=== PATIENT | male | born 1935 | race Caucasian/White ===

== ENCOUNTER 2020-05-11 15:36 | Emergency (ER) | payer MEDICARE, SELFPAY ==
[2020-05-11 15:37] VITALS: BP 120/67; PULSE 80; RESP 16; TEMP 36.1; O2SAT 98; BMI 34.3
--- NOTE | 2020-05-11 15:58 | ED.VIS.GEN ---
History of Present Illness Chief Complaint: Fall Informant: Patient, Significant Other Narrative: 84-year-old male presenting for evaluation after mechanical fall which occurred at about 230 this morning. His states he normally ambulates with a walker at baseline. She states he has had some falls in the past. Patient states he tripped while using his walker on the way to the bathroom. He fell into the shower and struck his left shoulder and the back of his head. He denies LOC. He is not on blood thinners however he does take aspirin. felt that he was more confused than usual this morning but seems to be at his baseline. He is ambulating with his walker and bearing weight with his left shoulder. He states he is making normal urine and stool. He has a normal diet. Prior similar symptoms: Yes Recent Illness/Hospitalization: Yes - Past Medical History (1) Benign essential hypertension Status: Chronic (2) Hyperlipidemia Status: Chronic (3) Type 2 diabetes mellitus Status: Chronic Past Medical History - Allergies and Home Meds Allergies/Adverse Reactions: Allergies adhesive Allergy (Verified 05/11/20 15:36) Rash Latex, Natural Rubber Allergy (Verified 05/11/20 15:36) Rash Primary Care Physician: Daren Avendano III, MD [Primary Care Provider] - Prior records reviewed: Yes Past Medical History: - - Reviewed in problem list Surgical History: noncontributory, - - She has previously undergone a left total hip replacement procedure in 2013. Lives: Spouse/ Significant Other Smoking Status: Never smoker Alcohol: None Drugs: None - Family History Maternal Family History: Reports: - - The patient's father at age of 67 with a history of cerebrovascular accident. Patient's mother at the age of 76 with a history of myocardial infarction. Review of Systems General: Denies: Chills, Fever, Sweats Eyes: Denies: Visual changes - bilaterally, Diplopia ENT: Denies: Rhinorrhea, Sore throat Cardiovascular: Denies: Chest pain, Palpitations Respiratory: Denies: Dyspnea, Cough, Dyspnea on exertion Gastrointestinal: Denies: Abdominal pain, Nausea, Vomiting, Diarrhea, Melena, Hematochezia Genitourinary: Denies: Dysuria, Hematuria, Frequency Musculoskeletal: Reports: Extremity Pain - Left shoulder pain. Denies: Back pain Skin: Denies: Rash, Abscess Neurological: Denies: Headache, Parasthesia, Numbness Psych: Denies: Depression, Anxiety Physical Exam Vital Signs/Narrative: Vital Signs Temp Pulse Resp BP Pulse Ox 05/11/20 15:37 97.0 F L 80 16 120/67 98 General: Well nourished, No Acute Distress Head: Normocephalic, Atraumatic Eyes: Perrl, EOMI ENT: Moist mucous membranes. Negative for: Nasal congestion Cardiovascular: Regular rate, Regular rhythm Respiratory: No distress, CTA bilaterally Back: Nontender, Normal Inspection Extremities: Tenderness - Tenderness to palpation over left shoulder. Minimal range of motion secondary to pain. Clavicle has deformity. Negative for: Edema, Calf Tenderness Skin: Normal color, No rash Neurological: Alert, Oriented x3, Cranial nerves II-XII grossly intact Psychological: Normal affect, Normal Mood Diagnostic/Tx/Re-eval Clinical Impression(s) from Imaging Studies Brain CT 05/11/20 16:03 IMPRESSION: No acute intracranial abnormality. Chronic ischemic and atrophic changes. Electronically Signed: Shaheen Payton MD at 16:49 EST Tel , Service support , Shoulder X-Ray 05/11/20 16:15 IMPRESSION: No fracture or dislocation. Moderate degenerative change. Electronically Signed: Shaheen Payton MD at 16:44 EST Tel , Service support , - Medical Decision Making Patient presents after mechanical fall for evaluation. His states he was initially more confused but is now coherent and normal at his baseline. He is been ambulatory with his walker although she states he is been walking slower. He has pain to the left shoulder. He denies headache, dizziness. Patient offered lab work as well as imaging however they did not want to do lab work today. They feel that he purely had a mechanical fall due to his walking difficulty. CT of the brain shows no acute process. Left shoulder x-ray 2 view as interpreted by myself and the radiologist shows no acute process. He and his are comfortable with going home at this time. Given return precautions. Patient stable for discharge. Impression: 1. Mechanical fall 2. Closed head injury 3. Left shoulder contusion ED Disposition - Plan for ED Patient: Disposition: Home or Assisted Living Instructions: ED Mechanical Fall, ED Head Injury (Adult), ED Shoulder Sprain Referrals: Daren Avendano III, MD [Primary Care Provider] -
--- NOTE | 2020-05-11 16:03 | CT_ITS ---
STUDY: CT BRAIN WITHOUT CONTRAST REASON FOR EXAM: Male, 84 years old. Fall. Dementia. RADIATION DOSAGE (If Supplied By Facility): CTDIvol = ( 44.99 ) mGy, DLP = ( 815.79 ) mGycm TECHNIQUE: Transaxial CT imaging of the brain was performed without administration of intravenous contrast material. Individualized dose optimization techniques were used for this CT. COMPARISON: None. FINDINGS: There is no acute bleed or infarct. There are chronic ischemic and atrophic changes. The ventricles are normal in configuration. There is no hydrocephalus. The visualized paranasal sinuses are clear. The mastoid air cells are well aerated. There is no skull fracture. CT/Brain/Head without Contrast IMPRESSION: No acute intracranial abnormality. Chronic ischemic and atrophic changes. Electronically Signed: Shaheen Payton MD at 16:49 EST Tel , Service support ,
--- NOTE | 2020-05-11 16:15 | RAD_ITS ---
STUDY: X-RAY - LEFT SHOULDER REASON FOR EXAM: Male, 84 years old. Fall. Pain. TECHNIQUE: 2 view(s) of the shoulder. COMPARISON: None. FINDINGS: There is no evidence of fracture or dislocation. There are moderate degenerative changes. There are no radiodense foreign bodies. RAD/Shoulder min 2 Views IMPRESSION: No fracture or dislocation. Moderate degenerative change. Electronically Signed: Shaheen Payton MD at 16:44 EST Tel , Service support ,
[2020-05-11 17:18] VITALS: PULSE 82; RESP 16
== END 2020-05-11 17:19 | disposition home or self-care (01) ==
PROVIDERS: Emergency Provider Student in an Organized Health Care Education/Training Program; PCP Family Medicine
DX: S09.90XA Unspecified injury of head, initial encounter (principal); S40.012A Contusion of left shoulder, initial encounter; W01.198A Fall on same level from slipping, tripping and stumbling with subsequent striking against other object, initial encounter; Y93.9 Activity, unspecified; Y92.002 Bathroom of unspecified non-institutional (private) residence as the place of occurrence of the external cause; Y99.9 Unspecified external cause status; E11.9 Type 2 diabetes mellitus without complications; E78.5 Hyperlipidemia, unspecified; F03.90 Unspecified dementia, unspecified severity, without behavioral disturbance, psychotic disturbance, mood disturbance, and anxiety; I10 Essential (primary) hypertension; I67.82 Cerebral ischemia; Z79.82 Long term (current) use of aspirin; Z82.49 Family history of ischemic heart disease and other diseases of the circulatory system; Z91.040 Latex allergy status
CPT/HCPCS: 70450; 73030; 99282

== ENCOUNTER 2021-05-02 08:25 | Inpatient (IN) | payer MEDICARE, SELFPAY ==
[2021-05-02] VITALS (11 sets, daily range): BP systolic 102–141; BP diastolic 54–94; PULSE 86–130; RESP 16–32; TEMP 35.7–36.9; O2SAT 80–98; BMI 28.3; BMI 27.7
--- NOTE | 2021-05-02 08:42 | EKG12_ITS ---
Test Reason : WEAKNESS Blood Pressure : / mmHG Vent. Rate : 089 BPM Atrial Rate : 089 BPM P-R Int : 170 ms QRS Dur : 098 ms QT Int : 378 ms P-R-T Axes : -01 061 005 degrees QTc Int : 459 ms Normal sinus rhythm Nonspecific ST abnormality Abnormal ECG Confirmed by LOYDA MARSH, RICHARD ([id number]), newspaper copy editor ROSALINA LLAMAS ([id number]) on 05/07/2021 11:11:48 AM Referred By: ELLY Confirmed By:RICHARD SCALES MD
--- NOTE | 2021-05-02 08:44 | EX.ED.DYSGE1 ---
HPI History of Present Illness Chief Complaint: Weakness Informant: patient and family Narrative Narrative: History is from patient and also from his daughter. Patient states he started with diarrhea about 2-3 days ago. However, his daughter states diarrhea is very common for him. It did change because it was a darker black with a little bit of red mixed in. It sounds like he might have had a GI bleed in the past. He is not on any nonsteroidals that I can ascertain. He is not on aspirin or any anticoagulants. He has some mild nausea but no vomiting. He has had hot and cold chills but no documented fever. No coughing or trouble breathing. No chest pain. He actually has no abdominal pain at any time. No urinary symptoms. His evidently was diagnosed with Covid on 22 April. He has not been tested. The reason they came in today is he is too weak to even get up out of bed now. He normally uses a walker. But for 24 hours he cannot get out of bed. The family needed to call EMS to get him in here. [facility] Medical History (Updated 05/02/21 @ 13:50 by Quinn Casey) Anxiety Dementia Depression Diabetes GERD (gastroesophageal reflux disease) Hypertension Rheumatoid arthritis Home Medications amlodipine 10 mg PO DAILY 05/30/14 [History Last Taken 05/02/21] calcium carbonate-vitamin D3 [Caltrate-600 With Vit D Tab] 1 tab PO DAILY@0800 05/30/14 [History Last Taken 05/02/21] fluoxetine 20 mg PO DAILY 05/30/14 [History Last Taken 05/02/21] indapamide 2.5 mg PO DAILY 05/30/14 [History Last Taken 05/02/21] lisinopril 40 mg PO DAILY 05/30/14 [History Last Taken 05/02/21] metoprolol tartrate 25 mg PO DAILY 05/30/14 [History Last Taken 05/02/21] donepezil 10 mg PO QHS 05/11/20 [History Last Taken 05/02/21] ferrous sulfate 325 mg PO BID 05/11/20 [History Last Taken 05/02/21] acetaminophen [Tylenol Arthritis] 650 mg PO Q12H PRN 05/02/21 [History Last Taken 05/02/21] melatonin 2.5 mg PO QHS 05/02/21 [History Last Taken Unknown] Allergy/AdvReac Type Severity Reaction Status Date / Time adhesive Allergy Rash Verified 05/11/20 15:36 Latex, Natural Rubber Allergy Rash Verified 05/11/20 15:36 Social History Smoking Status: Never smoker ROS ROS ED Constitutional Constitutional ED: Reports chills and subjective ENT ENT ED: Denies rhinorrhea or sore throat Cardiovascular Cardiovascular: Denies chest pain or palpitations Respiratory/Chest Respiratory/Chest: Denies cough or dyspnea Gastrointestinal Gastrointestinal: Reports diarrhea, melena and nausea; Denies abdominal pain or vomiting Genitourinary Genitourinary ED: Denies dysuria Musculoskeletal Musculoskeletal: Denies myalgias Integumentary Denies rash Neurologic Neurologic: Denies headache(s) Endocrine Endocrinology: Denies polydipsia or polyuria Allergic/Immunologic Allergic/Immunologic ED: Reports other Details: He does condition which is unnamed. He does have excoriations. This is not new or different. ; Denies mouth swelling or urticaria EXAM Physical Exam Narrative Exam Narrative: Patient does look a little bit pale. He looks overall a little weak. He is hard of hearing. Const Vital Signs: 05/02/21 08:26 05/02/21 08:30 05/02/21 08:45 Temperature 98.2 F 98.2 F Temperature Source Temporal Temporal Pulse Rate 96 96 Respiratory Rate 26 H 26 H Respiratory Effort Normal Non-Labored Respiratory Pattern Normal Blood Pressure 102/59 L 102/59 L Blood Pressure Mean 73 73 Pulse Ox 93 93 Oxygen Delivery Method Room Air Room Air 05/02/21 09:42 05/02/21 10:02 05/02/21 10:31 Temperature 98.1 F 98.2 F Temperature Source Oral Oral Pulse Rate 93 86 95 Respiratory Rate 22 H 19 H 25 H Respiratory Effort Respiratory Pattern Blood Pressure 114/54 L 109/57 L 109/57 L Blood Pressure Mean 74 74 74 Pulse Ox 93 93 Oxygen Delivery Method Room Air Room Air 05/02/21 11:23 Temperature 96.3 F L Temperature Source Temporal Pulse Rate 102 H Respiratory Rate 25 H Respiratory Effort Respiratory Pattern Blood Pressure 123/60 H Blood Pressure Mean 81 Pulse Ox Oxygen Delivery Method Positive well nourished and well developed General Appearance ED: well developed HEENT Reports dry mucous membranes Negative for trauma Mouth ED: Yes dry mucous membranes Mouth: dry mucous membranes Eyes Eyes Narrative: Very mild pallor. General Eye ED: Yes pale conjunctiva; Negative for scleral icterus Neck no JVD Chest Wall inspection of chest normal Resp normal respiratory effort Resp Narrative: Patient has some coarse breath sounds. However, he makes a lot of upper airway sounds when he breathes and these may be transmitted sounds. Effort and Inspection: Negative for pain with movement Auscultation: Negative for rales or wheezes Cardio regular rate and regular rhythm GI normal to inspection, nondistended, normoactive bowel sounds and non-tender GI Narrative: Rectal exam done showed really no notable stool. It is mildly dark. No gross bleeding. Palpation: soft Back/Spine no CVA tenderness Extremity normal to inspection Extremity Narrative: Extremities are somewhat large. But they are chronic. No real pitting edema of significance. Neuro Neuro Narrative: Patient is alert appropriate and at baseline. He is hard of hearing. His memory is not perfect and his daughter does fill in and change some of his historical points. Sensorium / Orientation: alert Psych mental status grossly normal Skin Skin Narrative: Excoriations mostly on his back and shoulder areas. No sign of infections. MDM MDM MDM Narrative Medical decision making narrative: Patient has a high white count that does not typically go along with Covid. He is covered with Zosyn that should provide some reasonable coverage for both intra-abdominal and pulmonary infections. He does have some mild anemia at 9.0. Electrolytes show some acute kidney injury. Lactate is normal. CT scan did show signs of diverticulitis. Patient will be admitted. He has generalized weakness, GI bleed, Covid. Lab Data Attestation: I reviewed the patient's lab results. Labs: Laboratory Results - last 24 hr 05/02/21 05/02/21 05/02/21 08:30 08:30 09:41 WBC 19.3 H RBC 3.07 L Hgb 9.0 L Hct 28.1 L MCV 91.5 MCH 29.3 MCHC 32.0 RDW Std Deviation 45.5 H RDW Coeff of Micah 13.6 Plt Count 305 MPV 8.7 Immature Gran % (Auto) 3.400 H Neut % (Auto) 83.2 H Lymph % (Auto) 6.9 L Mora % (Auto) 6.0 Eos % (Auto) 0.2 Baso % (Auto) 0.3 Absolute Neuts (auto) 16.1 H Absolute Lymphs (auto) 1.33 Nucleated RBC % 0 Sodium 140 Potassium 5.0 Chloride 112 H Carbon Dioxide 19.0 L Anion Gap 9 BUN 67 H Creatinine 2.86 H Estim Creat Clear Calc 19.57 Est GFR (MDRD) Af Amer 27 L Est GFR (MDRD) Non-Af 23 L BUN/Creatinine Ratio 23.4 H Glucose 178 H Lactic Acid 1.9 Calcium 8.4 L Total Bilirubin 0.20 AST 17 ALT 19 Alkaline Phosphatase 116 Troponin I High Sens 18 Total Protein 6.5 Albumin 2.4 L Globulin 4.1 Albumin/Globulin Ratio 0.6 L Radiography Diagnostic Testing: Clinical Impression(s) from Imaging Studies Chest X-Ray 05/02/21 09:16 IMPRESSION: Mild increased markings in the peripheral aspect of the right upper lobe. Electronically Signed: Shad Garrido MD at 9:53 EST , Service support , Abdomen/Pelvis CT 05/02/21 10:18 IMPRESSION: 3.4 cm x 3.6 cm diverticulum of the second portion of the duodenum with an air-fluid level. Sigmoid diverticulosis with a mild degree of the sigmoid diverticulitis. Distention of the gallbladder. Electronically Signed: Shad Garrido MD at 10:55 EST , Service support , EKG Initial EKG: Comments: EKG done for generalized weakness and read by me shows a normal sinus rhythm with overall rate of 89. No ventricular ectopy. Mild nonspecific ST and T wave change but no sign of acute infarct or ischemia. MS interval, QRS duration and QTc normal. Discharge Plan Dx/Rx/DC Orders Clinical Impression: COVID, Diarrhea, Inability to ambulate due to multiple joints, Diverticulitis, Acute kidney injury Disposition Disposition: Acute Care [facility] Discharge Date/Time: 05/02/21 12:23
[2021-05-02] MEDS: Ondansetron 4 MG/2 ML Vial IV (08:50)
[2021-05-02 08:59] LABS: Absolute Lymphocyte Count 1.33 X10^3/uL (0.83-4.51); Absolute Neutrophil Count 16.1 X10^3/uL (2.0-7.7); Basophil# 0.06 X10^3/uL; Basophil% 0.3 % (0-1); Eosinophil# 0.03 X10^3/uL; Eosinophils% 0.2 % (0-5); Hematocrit 28.1 % (40-54); Lymphocyte # 1.33 X10^3/ul (0.83-4.51); Lymphocyte % 6.9 % (19-41); Mean Corpuscular Hgb 29.3 pg (27.0-32.0); Mean Corpuscular Volume 91.5 fL (80-94); Mean Platelet Vol. 8.7 fl (6.2-12.0); Monocyte# 1.15 X10^3/uL; NRBC Flagged by Analyzer 0 % (0-5); Neutrophil # 16.05 X10^3/uL (2.7-7.7); Neutrophil % 83.2 % (47-70); Platelet Count 305 K/mm3 (150-450); RBC Distribution Width CV 13.6 % (11.6-14.6); RBC Distribution Width SD 45.5 fl (35.1-43.9); Red Blood Count 3.07 M/mm3 (4.6-6.2); White Blood Count 19.3 K/mm3 (4.4-11.0)
--- NOTE | 2021-05-02 09:16 | RAD_ITS ---
STUDY: X-RAY CHEST REASON FOR EXAM: Male, 85 years old. Fever, evaluate for pneumonia, Covid exposure TECHNIQUE: Single AP portable view of the chest. COMPARISON: None. FINDINGS: EKG electrodes are seen. Minimal increased markings in the peripheral aspect of the right upper lobe. Early infiltrate should be ruled out. There is no demonstrated pleural abnormality. Normal size heart. Normal mediastinum and adithya. Normal visualized pulmonary arteries. Normal visualized aortic arch and descending thoracic aorta. There are diffuse degenerative changes of the visualized thoracic spine. Healed left rib fractures. Hiatal hernia. RAD/Chest 1 View (Portable) IMPRESSION: Mild increased markings in the peripheral aspect of the right upper lobe. Electronically Signed: Shad Garrido MD at 9:53 EST , Service support ,
[2021-05-02 09:19] LABS: ALB/GLOB Ratio 0.6 RATIO (0.9-2.4); AST(SGOT) 17 U/L (15-37); Alanine Aminotransfer ALT/SGPT 19 U/L (16-61); Albumin, Serum 2.4 g/dL (3.2-5.0); Alkaline Phosphatase 116 U/L (45-117); Anion Gap 9 (5-15); BUN 67 mg/dL (7-18); BUN/Creat Ratio 23.4 RATIO (10-20); Calcium,Total 8.4 mg/dL (8.5-10.1); Chloride 112 mmol/L (98-107); Creatinine, Serum 2.86 mg/dL (0.70-1.30); EST Glomerular Filtration Rate 23 mL/min (>60); Est Glom Filt Rate - Afr Amer 27 mL/min (>60); Estimated Creatinine Clearance 19.57 ml/min; Globulin 4.1 g/dL (2.2-4.2); Glucose 178 mg/dL (74-106); Protein, Total 6.5 g/dL (6.4-8.2); Sodium Level 140 mmol/L (136-145); Troponin-I HS 18 pg/mL (3.0-78.0)
[2021-05-02 10:15] LABS: Lactic Acid 1.9 mmol/L (0.4-1.9)
--- NOTE | 2021-05-02 10:18 | CT_ITS ---
STUDY: CT ABDOMEN AND PELVIS WITHOUT CONTRAST REASON FOR EXAM: Male, 85 years old. Abd pain, increased WBC, GI Bleed, hx divertic RADIATION DOSAGE (If Supplied By Facility): CTDIvol = ( 12.10 ) mGy, DLP = ( 607.67 ) mGycm TECHNIQUE: Transaxial images were obtained from the dome of the diaphragm to the symphysis pubis without oral contrast, and without intravenous contrast. Sagittal and coronal images were reconstructed. Individualized dose optimization techniques were used for this CT. COMPARISON: Comparison is made with prior study dated 01/23/2012. FINDINGS: Mild degree of atelectasis and/or scarring at the lung bases. Coronary artery calcification. Normal liver. Mildly distended gallbladder. I cannot rule out tiny layering gallstones. Normal spleen. Normal pancreas. Normal bilateral adrenal glands. 3 mm calculus in the lower pole calyx of the right kidney. Normal left kidney. Normal visualized stomach. There is a 3.4 cm x 3.6 cm diverticulum in the second portion of the duodenum with an air-fluid level. There is diverticulosis, with thickening of the colon wall, and pericolonic inflammation changes consistent with mild acute diverticulitis. The appendix is visualized and appears normal. There is diffuse atherosclerotic calcification of the abdominal aorta and its major visceral branches, without a demonstrated aneurysm. Normal inferior vena cava. Normal retroperitoneum. Distended urinary bladder. There is a 2.4 cm x 2.2 cm diverticulum along the posterior left lateral wall of the bladder. Normal abdominal wall. There are diffuse degenerative changes of the visualized lumbar spine. Loss of height of the L1 vertebrae. Loss of height of the T10 vertebrae. Straightening of the normal lumbar lordosis. Status post left hip replacement. CT/Abdomen/Pelvis without Cont IMPRESSION: 3.4 cm x 3.6 cm diverticulum of the second portion of the duodenum with an air-fluid level. Sigmoid diverticulosis with a mild degree of the sigmoid diverticulitis. Distention of the gallbladder. Electronically Signed: Shad Garrido MD at 10:55 EST , Service support ,
--- NOTE | 2021-05-02 13:10 | CASEMGMT ---
RN CM Assessment: Telephone call to pt for initial transition planning/care coordination assessment as primary nurse reports pt is confused and unable to complete assessment with RN CM. RN CM introduced self and role at [facility], pt voices understanding and consents to assessment. Pt reports pt has dementia, that he is normally oriented to person and place but not time. She states pt has his days and nights mixed up. She is his primary cg and she currently has covid. Asked if she has any help in the home such as HHC or have considered it, she states he will not stand for anyone to come in the home. She also states she thinks that she needs to do something different as he is alot to handle but he won't go anywhere. Care providers, pharmacy, and demographics verified/updated. Admitting Dx: FINESSE JHAVERI GIB PCP:Tae Solis NP Specialists: None Preferred Pharmacy: [facility] Insurance: [employer] [facility] Prescription Benefit: yes LW/HPOA: Pt reports she is pt DPOA and pt does have a LW. LNOK: Claudia Schmitz, ; Clarke Griffith, dtr Living Arrangements: Pt lives with in a two story house with no steps to enter. Pt does not use the upper level of the home. Pt bathes and dresses pt. He is dependent in ADL's and IADL's. Transportation: Pt transports pt to medical appts. If she is not available, pt dtr transports him to medical appts. DME/HHC/SNF: Pt has a walker and w/c at home. She states pt does not check his blood sugars. Denies any hx of HHC or SNF stays. Pt tested positive for COVID at [facility]. Pt states that family is able to assist with groceries and supplies while in quarantine and has been doing this already. Discussed local in network DME companies should pt need home O2, she denies preference. Pt aware that this RN CM will follow for any needs at home and how he does with therapy. She states no further concerns/needs. Advised pt to ask CM if any further question/concerns/needs arise, voices understanding. Pt Goal: Pt to return home because this is what he wishes. She feels he needs placement. Plan: TBD
[2021-05-02] MEDS: 0.9% Normal Saline 1,000 ML 75 ML IV (13:33)
[2021-05-02] MEDS: Acetaminophen 325 MG Tablet 650 MG PO ×2 (14:05→21:33)
--- NOTE | 2021-05-02 14:10 | NURSING ---
spoke with Claudia and got home med list and history.
[2021-05-02 16:26] LABS: Bedside Glucose 117 mg/dL (70-110)
--- NOTE | 2021-05-02 17:19 | HP.PCM.HOS_ITS ---
HPI - General General Date of Admission: 05/02/21 HPI Narrative CHARAN BARAHONA, is a 85 M who presents with diarrhea, weakness and confusion. He is unable to provide any history and no family members are at bedside therefore history is obtained through review of the medical record. According to the ED doc with the patient's daughter stated that he does commonly have diarrhea but this time around is little bit more dark black with some red mixed into it, likely from hemorrhoids. He does not appear to be on any aspirin or ibuprofen to have a reason they identified radiculogram. They will bring [place] your views of the left lower borderline get the nodules about a volume out of there is no rigidity assessment is very good [place] [facility] C-19 have a reason for the bleed. He has not been eating or drinking very well over the last several days. Apparently his was also diagnosed with COVID on April 22 but he had not been tested until today. The main reason why he was brought in by family was that he was so weak that he could not get out of bed today. In the ER he was found to have a white blood cell count of 19.3 and also tested positive for COVID. Chest x-ray was unremarkable however given the diarrhea the ED physician did obtain a CT scan of his abdomen and pe lvis which demonstrated a duodenal diverticulum with a mild degree of sigmoid diverticulitis. [facility] Medical History (Updated 05/02/21 @ 17:[address] Nehemiah Luis MD) Anxiety Dementia Depression Diabetes GERD (gastroesophageal reflux disease) Hypertension Rheumatoid arthritis Home Medications amlodipine 10 mg PO DAILY 05/30/14 [History Last Taken 05/02/21] calcium carbonate-vitamin D3 [Caltrate-600 With Vit D Tab] 1 tab PO DAILY@0800 05/30/14 [History Last Taken 05/02/21] fluoxetine 20 mg PO DAILY 05/30/14 [History Last Taken 05/02/21] indapamide 2.5 mg PO DAILY 05/30/14 [History Last Taken 05/02/21] lisinopril 40 mg PO DAILY 05/30/14 [History Last Taken 05/02/21] metoprolol tartrate 25 mg PO DAILY 05/30/14 [History Last Taken 05/02/21] donepezil 10 mg PO QHS 05/11/20 [History Last Taken 05/02/21] ferrous sulfate 325 mg PO BID 05/11/20 [History Last Taken 05/02/21] acetaminophen [Tylenol Arthritis] 650 mg PO Q12H PRN 05/02/21 [History Last Taken 05/02/21] melatonin 2.5 mg PO QHS 05/02/21 [History Last Taken Unknown] Allergy/AdvReac Type Severity Reaction Status Date / Time adhesive Allergy Rash Verified 05/11/20 15:36 Latex, Natural Rubber Allergy Rash Verified 05/11/20 15:36 Family History unable to obtain unable to obtain Surgical History unable to obtain unable to obtain Social History Smoking Status: Never smoker ROS Review of Systems ROS Unobtainable: due to mental status Vital Signs Vital Signs Vital Signs: 05/02/21 08:26 05/02/21 08:30 05/02/21 08:45 Temperature 98.2 F 98.2 F Temperature Source Temporal Temporal Pulse Rate 96 96 Respiratory Rate 26 H 26 H Respiratory Effort Normal Non-Labored Respiratory Depth Respiratory Pattern Normal Blood Pressure 102/59 L 102/59 L Blood Pressure Mean 73 73 Blood Pressure Source Blood Pressure Position Blood Pressure Location Pulse Ox 93 93 Oxygen Delivery Method Room Air Room Air 05/02/21 09:42 05/02/21 10:02 05/02/21 10:31 Temperature 98.1 F 98.2 F Temperature Source Oral Oral Pulse Rate 93 86 95 Respiratory Rate 22 H 19 H 25 H Respiratory Effort Respiratory Depth Respiratory Pattern Blood Pressure 114/54 L 109/57 L 109/57 L Blood Pressure Mean 74 74 74 Blood Pressure Source Blood Pressure Position Blood Pressure Location Pulse Ox 93 93 Oxygen Delivery Method Room Air Room Air 05/02/21 11:23 05/02/21 12:54 05/02/21 12:55 Temperature 96.3 F L 97.6 F L Temperature Source Temporal Oral Pulse Rate 102 H 102 H Respiratory Rate 25 H 18 Respiratory Effort Non-Labored Respiratory Depth Normal Respiratory Pattern Normal Blood Pressure 123/60 H 102/55 L Blood Pressure Mean 81 70 Blood Pressure Source Monitor Blood Pressure Position Semi-Fowlers Blood Pressure Location Left Arm Pulse Ox 94 Oxygen Delivery Method Room Air Room Air 05/02/21 16:08 Temperature 98.2 F Temperature Source Oral Pulse Rate 104 H Respiratory Rate 16 Respiratory Effort Respiratory Depth Respiratory Pattern Blood Pressure 113/61 Blood Pressure Mean 78 Blood Pressure Source Monitor Blood Pressure Position Semi-Fowlers Blood Pressure Location Right Arm Pulse Ox 97 Oxygen Delivery Method Room Air Weight Weight: 188 lb Body Mass Index (BMI) 27.7 Physical Exam Const alert and no apparent distress General Appearance: cooperative HEENT normocephalic Mouth: dry mucous membranes Eyes PERRL, EOMs intact bilaterally and conjunctivae normal Neck supple and no JVD Resp normal respiratory effort, no retractions and no use of accessory muscles Auscultation: crackles and diminished lung sounds; Negative for rales, rhonchi or wheezes Cardio regular rate, regular rhythm, S1 normal heart sound, S2 normal heart sound and no murmurs GI soft to palpation, non-tender and non-distended; Negative for hepatosplenomegaly Extremity no clubbing, cyanosis or edema Skin no rashes or lesions noted Neuro no focal motor deficits and no sensory deficits noted Psych affect normal Appearance: appropriate Results Lab / Micro Data Result Diagrams: 05/02/21 08:30 05/02/21 08:30 Labs: Laboratory Results - last 24 hr 05/02/21 08:30: WBC 19.3 H, RBC 3.07 L, Hgb 9.0 L, Hct 28.1 L, MCV 91.5, MCH 29.3, MCHC 32.0, RDW Std Deviation 45.5 H, RDW Coeff of Micah 13.6, Plt Count 305, MPV 8.7, Immature Gran % (Auto) 3.400 H, Neut % (Auto) 83.2 H, Lymph % (Auto) 6.9 L, Chambers % (Auto) 6.0, Eos % (Auto) 0.2, Baso % (Auto) 0.3, Absolute Neuts (auto) 16.1 H, Absolute Lymphs (auto) 1.33, Nucleated RBC % 0 05/02/21 08:30: Sodium 140, Potassium 5.0, Chloride 112 H, Carbon Dioxide 19.0 L , Anion Gap 9, BUN 67 H, Creatinine 2.86 H, Estim Creat Clear Calc 19.57, Est GFR (MDRD) Af Amer 27 L, Est GFR (MDRD) Non-Af 23 L, BUN/Creatinine Ratio 23.4 H , Glucose 178 H, Calcium 8.4 L, Total Bilirubin 0.20, AST 17, ALT 19, Alkaline Phosphatase 116, Troponin I High Sens 18, Total Protein 6.5, Albumin 2.4 L, Globulin 4.1, Albumin/Globulin Ratio 0.6 L 05/02/21 09:41: Lactic Acid 1.9 05/02/21 16:06: POC Glucose 117 H Micro: Microbiology 05/02/21 08:35 Nasal Secretion SARS-CoV-2 Antigen (Rapid) - Final SARS-CoV-2 (COVID 19) 05/02/21 08:41 Stool Stool Occult Blood (KAVITA) - Final Occult Blood Positive Radiology Impression Chest X-Ray 05/02/21 09:16 IMPRESSION: Mild increased markings in the peripheral aspect of the right upper lobe. Electronically Signed: Shad Garrido MD at 9:53 EST , Service support , Abdomen/Pelvis CT 05/02/21 10:18 IMPRESSION: 3.4 cm x 3.6 cm diverticulum of the second portion of the duodenum with an air-fluid level. Sigmoid diverticulosis with a mild degree of the sigmoid diverticulitis. Distention of the gallbladder. Electronically Signed: Shad Garrido MD at 10:55 EST , Service support , Assessment & Plan Assessment/Plan (1) Diverticulitis: PLAN: 1. Failure to thrive and general debility with weakness secondary to diverticulitis/COVID-19/FINESSE due to dehydration/chronic iron deficiency anemia ? We will start him on Zosyn ? Start him on normal saline at 75 cc/hr secondary to his dehydration, will be cautious given his COVID-19 though he does not appear to have pneumonia at this time ? PT/OT for evaluation and possible placement ? Given his FINESSE, will hold his lisinopril ? Hemoglobin is at 9 which does not appear to be significantly different from his baseline however his most lab work from 2011 therefore we will monitor, occult blood was positive in the ER but this could be secondary to his d iverticulitis, denies any emesis or hematemesis, upper GI bleed unlikely scolds ? Repeat H&H in the morning and if it continues to decline, can transfuse and placed on a PPI ? Continue with his iron replacement 2. HTN ? Blood pressure stable ? Can continue with his Norvasc and his metoprolol but will hold his lisinopril secondary to FINESSE 3. Dementia ? Stable ? Continue with his donepezil DVT: SCDs Charges/Coding Visit Charges Inpatient E&M: 01556 Init Hosp L3
[2021-05-02] MEDS: Donepezil HCl 10 MG Tablet PO (20:16)
--- NOTE | 2021-05-02 23:14 | PCM.PN.BLA ---
Progress Note Nurse reports hematochezia and tachycardia. Blood pressures are soft. Normal saline bolus given. Protonix ordered. Check H&H status. Also nurse reports agitation. Haldol ordered.
--- NOTE | 2021-05-02 23:49 | EKG12_ITS ---
Test Reason : UNRESPONSIVE Blood Pressure : / mmHG Vent. Rate : 047 BPM Atrial Rate : 053 BPM P-R Int : 000 ms QRS Dur : 092 ms QT Int : 394 ms P-R-T Axes : 000 076 019 degrees QTc Int : 348 ms Sinus bradycardia with 2nd degree A-V block (Mobitz I) Abnormal ECG Confirmed by DANIEL MARSH, CRYSTAL ([id number]), food expeditor ROSALINA LLAMAS ([id number]) on 05/09/2021 8:21:18 AM Referred By: [id number] Confirmed By:HIMANSHU SANCHEZ MD
--- NOTE | 2021-05-03 00:36 | NURSING ---
This RN documented code blue intervention on C. Signorino login/under his name, however, documentation completed by this RN.
--- NOTE | 2021-05-03 00:45 | PCM.CODE.SUM ---
Code Blue Report Code Blue Summary Code Blue Summary: Rapid response was called because patient was unresponsive. While in the rapid response patient had respiratory arrest. Patient was Ambu bag. While patient was being Ambu bag blood was coming from his mouth. Also of note patient had hematochezia. Patient lost his pulse. ACLS was started. After several rounds of CPR and epinephrine patient had ROSC. Patient was put on epinephrine drip and was intubated. Uncrossed matched blood was ordered and transfused. Family was reached. Family wanted CPR continued until the recheck. Patient was transferred to the ICU. While in the ICU patient coded again. ACLS was started second time. After several minutes of ACLS patient could not achieve ROSC. Patient was pronounced on 05/03/2021 at 0105.
--- NOTE | 2021-05-03 01:09 | PCM.DEATH ---
Preliminary Cause of Preliminary Cause of Preliminary Cause of : Ruptured peptic ulcer Principle Diagnosis Problem List: Active and Suspected Problems (Updated 05/02/21 @ 17:[address] Nehemiah Luis MD) Diverticulitis (Acute) Diarrhea (Acute) Inability to ambulate due to multiple joints (Acute) Hospital Course hpi: Hospital course: Patient was admitted to the hospital with diarrhea, weakness and confusion. At the emergency department was found to have a leukocytosis and was positive for Covid. CT of his abdomen pelvis showed duodenal diverticulum with some mild degree of sigmoid diverticulitis. Patient was started on Zosyn. On the ninth of 05/02/2021 going into 05/03/2021 patient had hematochezia. Protonix IV was ordered and given. H&H was ordered. Patient also had agitation so Haldol was ordered but was not given. Nurse, checked on patient and found that patient was unresponsive. Rapid response was called. During rapid response patient went into respiratory arrest. Patient was Ambu bagged. While patient was Ambu bag does relate that patient was having blood from his mouth. Patient eventually lost his pulse and ACLS protocol with CPR was started. Patient received multiple rounds of epinephrine. Eventually ROSC was achieved. Patient was intubated. Also patient received uncrossed matched blood that was ordered. Patient was transferred to the ICU on epinephrine drip. While at the ICU patient lost his pulse again and ACLS with CPR was initiated. Despite several rounds of ACLS with CPR with bicarbonate and epinephrine with IV fluids going at wide open and with blood transfusion patient could not be resuscitated a second time. Patient was pronounced on 05/03/2021 at 0105. Patient had no heart sounds or lung sounds. Patient had no pulse. Patient had no corneal reflex. Date of : 05/03/2021 Time of :0105 Immediate cause of (final disease of condition resulting in ): Ruptured peptic ulcer duration Duration: Hours Listed conditions leading to cause of (due to or as a consequence of) : Peptic ulcer disease Duration: Years Listed other significant conditions contributing to but not resulting in the underlying cause of : Sigmoid diverticulitis Did tobacco contribute to : No Patient was found to have a COVID-19 infection on presentation yet patient was not hypoxic. COVID-19 did not contribute to his . Patient passed on 05/03/2021 at 0105. Visit Charges Inpatient E&M: 68705 Disch Hosp
[2021-05-03 01:21] LABS: Bedside Glucose 174 mg/dL (70-110)
--- NOTE | 2021-05-03 01:30 | NURSING ---
This nurse asked to review pt by primary RN at 2330hrs, upon entering room. pt respirations 32 per minute, 02 sats 80% on RA, apical HR 130bpm. Pt unresponsive. Rapid response called. Pt placed on oxygen. Pt deteriorated to agonal breathing, code subsequently called. refer to code charting.
--- NOTE | 2021-05-03 03:13 | NURSING ---
0046-pt arrived to ICU rm 3, pulse present but weak. 0048- asystole,CPR started 0050- asystole,CPR 0051- 1mg Epi 0052- asystole,CPR 0054- ROSC 0056- asystole,CPR 0057- 1mg Epi, 1amp bicarb 0058- asystole,CPR 0100- asystole,CPR 0102- asystole,CPR 0103- 1mg Epi 0104- asystole 0105- pronouncement
== END 2021-05-03 01:05 | DRG 177 ==
LOC: ED 10:49 → MS3 12:44 → ICU 05-03 00:45
PROVIDERS: Admitting Provider Family Medicine; Emergency Provider Emergency Medicine; PCP Nurse Practitioner Family; Visit Provider Family Medicine
DX: U07.1 COVID-19 (principal); K27.1 Acute peptic ulcer, site unspecified, with perforation; N17.9 Acute kidney failure, unspecified; K57.12 Diverticulitis of small intestine without perforation or abscess without bleeding; K92.1 Melena; E11.9 Type 2 diabetes mellitus without complications; D50.9 Iron deficiency anemia, unspecified; F03.90 Unspecified dementia, unspecified severity, without behavioral disturbance, psychotic disturbance, mood disturbance, and anxiety; M06.9 Rheumatoid arthritis, unspecified; E86.0 Dehydration; I10 Essential (primary) hypertension; R26.2 Difficulty in walking, not elsewhere classified; K57.10 Diverticulosis of small intestine without perforation or abscess without bleeding; R62.7 Adult failure to thrive; R53.81 Other malaise
CPT/HCPCS: 71045; 74176; 80053; 82274; 82962; 83605; 84484; 85025; 86850; 86900; 86901; 87426; 93005; 99285; J7030; J7040; J7050; P9016; A4216; J2405